=== PATIENT | female | born 1975 | race Caucasian/White ===

== ENCOUNTER 2018-12-05 07:57 | Day surgery (SDC) | payer OTHER ==
[~2018-12-05] VITALS: Ht 157.5 cm; Wt 54.8 kg
[2018-12-05 08:44] VITALS: BP 124/76
== END 2018-12-05 12:55 | disposition home or self-care (01) ==
LOC: OUT 07:57
PROVIDERS: ATTEND Surgery
DX: N60.11 Diffuse cystic mastopathy of right breast (principal); N61.0 Mastitis without abscess; Z79.899 Other long term (current) drug therapy
CPT/HCPCS: 19120; 36415; 80053; 81025; 82962; 88305; 88307; 93005; J0330; J0690; J1100; J1885; J2250; J2405; J2704; J3010; J3490; J7120

== ENCOUNTER → 2019-06-07 | Outpatient (CLI) | payer OTHER ==
[~2019-06-07] MED LIST: GLIP5TAB10 PO; LIDOCAINE 1%, 20ML ONE; LIDOCAINE 1%-EPI 1:100K, 20ML ONE; METF500T17 PO; SODIUM BICARBONATE 4.2%, 5ML ONE
== END | disposition home or self-care (01) ==
LOC: CFH 07:49
PROVIDERS: ATTEND Surgery
DX: N63.11 Unspecified lump in the right breast, upper outer quadrant (principal); E11.9 Type 2 diabetes mellitus without complications; Z79.4 Long term (current) use of insulin; Z79.899 Other long term (current) drug therapy; Z83.3 Family history of diabetes mellitus; Z80.9 Family history of malignant neoplasm, unspecified
CPT/HCPCS: 19285; 77065; J3490

== ENCOUNTER 2019-06-15 06:18 | Day surgery (SDC) | payer OTHER ==
[~2019-06-15] VITALS: Ht 157.5 cm; Wt 65.7 kg
[~2019-06-15 06:18] MED LIST changes: -LIDOCAINE 1%, 20ML ONE; -LIDOCAINE 1%-EPI 1:100K, 20ML ONE; -SODIUM BICARBONATE 4.2%, 5ML ONE
[2019-06-15] MEDS ORDERED: BUPIVACAINE/PF 0.25% ONE (06:34)
[2019-06-15] MEDS ORDERED: ISOSULFAN BLUE 10 MG/ML, 5ML IV ONE (06:34)
[2019-06-15] MEDS ORDERED: LACTATED RINGERS 1,000 ML IV SCH (06:42)
[2019-06-15] MEDS ORDERED: ACETAMINOPHEN 500 MG TABLET PO ONE (07:00)
[2019-06-15] MEDS ORDERED: GABAPENTIN 300 MG CAPSULE PO ONE (07:00)
[2019-06-15 07:07] VITALS: BP 119/79
[2019-06-15] MEDS ORDERED: HUM100VI6 SC (07:37)
[2019-06-15 08:02] LABS: ALANINE AMINOTRANSFERASE 17 U/L (12-78); ALBUMIN 3.5 g/dL (3.4-5.0); ANION GAP 3 mmol/L (5-15); CALCIUM 8.5 mg/dL (8.5-10.1); CHLORIDE 109 mmol/L (98-107); CREATININE 0.53 mg/dL (0.55-1.02)
[2019-06-15 08:04] LABS: ALKALINE PHOSPHATASE 59 U/L (45-117); BILIRUBIN,TOTAL 0.4 mg/dL (0.2-1.0); TOTAL PROTEIN 7.3 g/dL (6.4-8.2)
[2019-06-15] MEDS ORDERED: FENTANYL PF 100 MCG/2ML ONE ×2 (08:28→09:47)
[2019-06-15] MEDS ORDERED: KETOROLAC 30 MG/1 ML ONE ×2 (08:29→08:43)
[2019-06-15] MEDS ORDERED: PROMETHAZINE 25 MG/ML, 1ML IV PRN (08:30)
[2019-06-15] MEDS ORDERED: HALOPERIDOL 5 MG/ML IV PRN (08:30)
[2019-06-15] MEDS ORDERED: LABETALOL 5MG/ML, 20ML IV PRN (08:30)
[2019-06-15] MEDS ORDERED: FENTANYL PF 100 MCG/2ML IV PRN (08:30)
[2019-06-15] MEDS ORDERED: HYDROmorphone 2 MG/ML, 1ML IVPush PRN (08:30)
[2019-06-15] MEDS ORDERED: hydrALAzine 20 MG/ML, 1ML IV PRN (08:30)
[2019-06-15] MEDS ORDERED: MEPERIDINE/PF 25MG/ML,1ML IVPush PRN (08:30)
[2019-06-15] MEDS ORDERED: OXYcodone 5 MG/5 ML ORAL.SOL UDC PO PRN (08:30)
[2019-06-15] MEDS ORDERED: DEXAMETHASONE 4 MG/ML, 1ML ONE (08:43)
[2019-06-15] MEDS ORDERED: CEFAZOLIN 1,000 MG ONE (08:43)
[2019-06-15] MEDS ORDERED: PROPOFOL 10 MG/ML, 20ML ONE (08:43)
[2019-06-15] MEDS ORDERED: ONDANSETRON 2MG/ML, 2ML ONE ×2 (08:43→12:03)
[2019-06-15] MEDS ORDERED: OXYcodone 5 MG/5 ML ORAL.SOL UDC ONE (09:47)
[2019-06-15] MEDS ORDERED: ONDANSETRON 2MG/ML, 2ML IVPush ONE (12:00)
== END 2019-06-15 12:55 | disposition home or self-care (01) ==
LOC: OUT 06:18
PROVIDERS: ATTEND Surgery
DX: R92.8 Other abnormal and inconclusive findings on diagnostic imaging of breast (principal); C50.911 Malignant neoplasm of unspecified site of right female breast; E10.9 Type 1 diabetes mellitus without complications; Z17.0 Estrogen receptor positive status [ER+]
CPT/HCPCS: 19301; 36415; 76098; 80053; 81025; 82962; 88307; 88341; 88342; 88360; 93005; J0690; J1885; J2405; J2704; J3010; J3490; J7120; J1100